=== PATIENT | female | born 1975 | race Caucasian/White ===

== ENCOUNTER 2023-01-31 06:16 | Day surgery (SDC) | payer BC ==
[2023-01-30 10:20] VITALS: BMI 49.1
[2023-01-31] MEDS ORDERED: Midazolam HCl 2 mg/2 ml Vial ONE (08:19)
[2023-01-31] MEDS ORDERED: PROPOFOL 40 ML ONE (08:22)
[2023-01-31] MEDS ORDERED: PROPOFOL 20 ML ONE ×4 (08:30→08:50)
== END 2023-01-31 09:54 | disposition home or self-care (01) ==
LOC: CSHSDC 06:16
PROVIDERS: ATTEND Internal Medicine Gastroenterology
PROC: 0DJD8ZZ Inspection of Lower Intestinal Tract, Via Natural or Artificial Opening Endoscopic (ICD-10-PCS; principal; 2023-01-31)
PROC: 0DB68ZX Excision of Stomach, Via Natural or Artificial Opening Endoscopic, Diagnostic (ICD-10-PCS; principal; 2023-01-31)
DX: Z12.11 Encounter for screening for malignant neoplasm of colon (principal); D50.9 Iron deficiency anemia, unspecified; K58.0 Irritable bowel syndrome with diarrhea; E66.9 Obesity, unspecified; E11.9 Type 2 diabetes mellitus without complications; I10 Essential (primary) hypertension; E78.5 Hyperlipidemia, unspecified; G40.909 Epilepsy, unspecified, not intractable, without status epilepticus; F41.9 Anxiety disorder, unspecified; K29.50 Unspecified chronic gastritis without bleeding; K25.9 Gastric ulcer, unspecified as acute or chronic, without hemorrhage or perforation; Z68.42 Body mass index [BMI] 45.0-49.9, adult; Z79.899 Other long term (current) drug therapy; Z88.5 Allergy status to narcotic agent
CPT/HCPCS: 88305; 88342; J2250; J2704